=== PATIENT | female | born 1950 | race Caucasian/White ===

== ENCOUNTER 2018-12-13 07:58 | Day surgery (SDC) | payer MEDICARE ==
[~2018-12-13] VITALS: Ht 167.6 cm; Wt 59.0 kg
[~2018-12-13 07:58] MED LIST: ACETAMINOPHEN 325 MG TAB PO PRN; BSS with VANC/TOB/EPI for EYE CASES IR ONE; CYCLOPENTOLATE 2% OPHTH SOLN 2ML BTL OD ONE; DILA100C PO; HEALON DUET PRO(HEALON 10MG/ML 0.55ML & HEALON ENDOCOAT 30MG/ML 0.85ML) As Ordered ONE; LIDOCAINE 1% SDV 5 ML VIAL As Ordered ONE; LIDOCAINE 3.5 % 1ML OPHTH TOPICAL GEL OU ONE; MIDAZOLAM INJ 2 MG/2 ML VIAL (J2250) As Ordered ONE; MOXIFLOXACIN IN BSS 0.25MG/0.25ML INTRACAMERAL INJ (OR EYE ONLY)(J2280) As Ordered ONE; OFLOXACIN 0.3 % (OCUFLOX) OPTH SOL 5ML OD ONE; ONDANSETRON 4MG/2ML VIAL (J2405) As Ordered ONE; PHENYLEPHRINE 2.5% OPHTH SOL 2ML OD ONE; PHENYLEPHRINE HCL 10 % OPHTH. SOL 5ML OD PRN; POVIDONE-IODINE 5% OPHTH PREP SOL 30ML As Ordered ONE; PRENTAB55 PO; TRIAMCINOLONE PRES FR 40 MG/ML 1ML(TRIESENCE)(OR EYE ONLY)(J3300 PER 1MG) As Ordered ONE; TROPICAMIDE 1% OPHTH SOLN 2ML OD ONE; VITA100067 PO; VITA500T PO; fentaNYL 100 MCG/2 ML INJECTION (J3010) As Ordered ONE
[2018-12-13] MEDS ORDERED: TRIMETHOBENZAMIDE 300 MG CAP PO PRN (10:30)
[2018-12-13] MEDS ORDERED: AcetaZOLAMIDE 500 MG ER CAP PO ONE (10:30)
[2018-12-13] MEDS ORDERED: AcetaZOLAMIDE 500 MG ER CAP As Ordered ONE (10:35)
[2018-12-13 10:40] VITALS: BP 114/56
[2018-12-13] MEDS ORDERED: ACETAMINOPHEN TAB 650MG DOSE (2X325MG) PO PRN (11:00)
[2018-12-13] MEDS ORDERED: ONDANSETRON 4MG/2ML VIAL (J2405) IV PRN (11:00)
--- NOTE | 2018-12-13 15:24 | RO ---
DATE OF PROCEDURE: 12/13/2018 DATE OF PROCEDURE: PREPROCEDURE DIAGNOSIS: Cataract of right eye. POSTPROCEDURE DIAGNOSIS: Cataract of right eye. PROCEDURE: Femtosecond laser and phacoemulsification of the intraocular lens with lens implantation right eye. Intraocular lens power used was [id number], 17.5 diopter with Optiwave refractory analysis (ORA). SURGEON: Fernando Barrios MD CONCRETE WORKER: None. ANESTHESIA: Local IV standby. FINDINGS: Cataract of right eye. COMPLICATIONS: None. DESCRIPTION OF PROCEDURE: The patient was brought to the operating room and laid in supine position. A lid speculum was placed, and patient was brought under the femtosecond laser. After the satisfactory placement of the patient interface, primary incision, secondary incision, and arcuate incisions with lens fragmentation was done without any complication per plan. The patients interface was then removed and lid speculum removed. Patient was placed under the microscope. The eye was prepped and draped in a sterile fashion for ophthalmic surgery. Lid speculum was placed. The secondary incision was opened, and EndoCoat was injected into the anterior chamber. The temporal clear corneal incision was then opened and capsulorrhexis removed, followed by hydrodissection. This was followed by phacoemulsification of the lens within the capsular bag. Cortical material was then aspirated, and Healon was injected into the capsular bag. Intraocular lens was then placed. Excess Healon was aspirated. Wound was hydrated. The lid speculum was removed, and patient was returned to the recovery room in stable condition. ADDENDUM: After the Healon was placed in the capsular bag, prior to placement of the intraocular lens, multiple Optiwave refractory analysis (ORA) calculations were taken and reviewed and intraocular lens power chosen.
== END 2018-12-13 11:04 | disposition home or self-care (01) ==
LOC: M SDC 07:58
PROVIDERS: ATTEND Ophthalmology
DX: H26.9 Unspecified cataract (principal); E78.00 Pure hypercholesterolemia, unspecified; R06.83 Snoring; R19.7 Diarrhea, unspecified; N30.11 Interstitial cystitis (chronic) with hematuria; G40.909 Epilepsy, unspecified, not intractable, without status epilepticus; K62.5 Hemorrhage of anus and rectum; E55.9 Vitamin D deficiency, unspecified; Z88.1 Allergy status to other antibiotic agents; Z78.0 Asymptomatic menopausal state
CPT/HCPCS: 66984; J2250; J2280; J2405; J3010; J3300; V2632

== ENCOUNTER → 2021-05-06 | Outpatient (REF) ==
[~2021-05-06] MED LIST changes: -ACETAMINOPHEN 325 MG TAB PO PRN; -BSS with VANC/TOB/EPI for EYE CASES IR ONE; -CYCLOPENTOLATE 2% OPHTH SOLN 2ML BTL OD ONE; -HEALON DUET PRO(HEALON 10MG/ML 0.55ML & HEALON ENDOCOAT 30MG/ML 0.85ML) As Ordered ONE; -LIDOCAINE 1% SDV 5 ML VIAL As Ordered ONE; -LIDOCAINE 3.5 % 1ML OPHTH TOPICAL GEL OU ONE; -MIDAZOLAM INJ 2 MG/2 ML VIAL (J2250) As Ordered ONE; -MOXIFLOXACIN IN BSS 0.25MG/0.25ML INTRACAMERAL INJ (OR EYE ONLY)(J2280) As Ordered ONE; -OFLOXACIN 0.3 % (OCUFLOX) OPTH SOL 5ML OD ONE; -ONDANSETRON 4MG/2ML VIAL (J2405) As Ordered ONE; -PHENYLEPHRINE 2.5% OPHTH SOL 2ML OD ONE; -PHENYLEPHRINE HCL 10 % OPHTH. SOL 5ML OD PRN; -POVIDONE-IODINE 5% OPHTH PREP SOL 30ML As Ordered ONE; -TRIAMCINOLONE PRES FR 40 MG/ML 1ML(TRIESENCE)(OR EYE ONLY)(J3300 PER 1MG) As Ordered ONE; -TROPICAMIDE 1% OPHTH SOLN 2ML OD ONE; +VITA-243 PO; -VITA500T PO; -fentaNYL 100 MCG/2 ML INJECTION (J3010) As Ordered ONE
== END ==
LOC: M LAB LCGH 15:52
PROVIDERS: ATTEND Internal Medicine
DX: Z00.00 Encounter for general adult medical examination without abnormal findings (principal)